=== PATIENT | male | born 1945 | race Caucasian/White ===

== ENCOUNTER 2022-12-02 06:48 | Inpatient (IN) ==
--- NOTE | 2022-12-02 09:29 | Pre Anesthesia Assessment ---
Date of Service December 02, 2022 Pre Sedation Assessment Vital Signs Temp Pulse Resp BP Pulse Ox O2 Del Method 12/02/22 07:13 36.9 C 73 14 160/73 H 95 Room Air Cardiovascular RRR, no murmur, no edema Respiratory normal respiratory effort, lungs clear to auscultation Pre-Sedation Airway Assessment Smoking Status: Never smoker Hx Sleep Apnea: No Short, Thick Neck: No Thyromental Distance: > or= 3.5 Finger Breadths Oral Cavity: + Dentures Mallampati Class: IV ASA: ASA3 NPO Status Date of Last Intake of Fluids: 12/01/22 Time of Last Intake of Fluids: 18:00 Date of Last Intake of Solid Food: 12/01/22 Time of Last Intake of Solid Foods: 18:00 Notes The planned sedation has been discussed with the patient. Informed Consent was obtained. I have identified the patient, determined the appropriateness of sedation and have assessed the patient immediately prior to the procedure. All medicine(s) and interventions are by my order.
--- NOTE | 2022-12-02 09:31 | History & Physical Bridge Note ---
Date of Service December 02, 2022 History & Physical Bridge Note I have examined the patient, reviewed the History & Physical and in the interval since the performance of the History & Physical I have noted the following changes of clinical significance: no changes noted. Patient with CCS 3 angina and abnormal stress. Known severe LAD stenosis corresponding to stress abnormality. CRI. Plan PCI from groin approach.
[2022-12-02] MEDS ORDERED: niCARdipine HCL INJ 2.5 MG/ML 10 ML AMP ONE (09:44)
[2022-12-02] MEDS ORDERED: fentaNYL citrate PF 100 MCG/2 ML VIAL ONE (09:44)
[2022-12-02] MEDS ORDERED: HEPARIN (PORCINE) 1000 UNIT/ML 10 ML (CATH LAB USE ONLY) ONE (09:44)
[2022-12-02] MEDS ORDERED: MIDAZOLAM HCL 1 MG/ML 2ML VIAL ONE (09:44)
[2022-12-02] MEDS ORDERED: NITROGLYCERIN/D5W 100MCG/ML 20ML SYR ONE (09:45)
[2022-12-02] MEDS ORDERED: diphenhydrAMINE 50 MG/ML VIAL ONE (10:08)
[2022-12-02] MEDS ORDERED: ASPIRIN 81 MG CHEW ONE (10:51)
--- NOTE | 2022-12-02 10:57 | Post Anesthesia Assessment ---
Date of Service December 02, 2022 Post Sedation Assessment Vital Signs Temp Pulse Resp BP Pulse Ox O2 Del Method 12/02/22 10:45 62 14 132/70 95 Room Air 12/02/22 07:13 36.9 C 73 14 160/73 H 95 Room Air Recovery Score Activity: Moves 4 extremities Respiration: Deep Breath/Cough Circulation: +/-20% PreAnes Value Consciousness: Fully Awake Oxygen Saturation: > 92% On Room Air Post Anesthesia Score: 10 Discharge Sedation Level of Care: Fast Track Phase II Post Sedation Plan On clinical assessment, the patient appears to have tolerated the sedation without complications. Patient is recovering as anticipated. Patient will continue to be monitored by nursing and may be discharged when sedation discharge criteria are met per below protocol. Upon Completions of procedure up to 15 minutes continue every 5 minute vital signs and the P.A.R. score; then discharge to a Phase I or Fast Track to Phase II per the following guidelines: * Discharge Patient to appropriate Phase II area if PAR is 8 or greater or return to pre- procedure baseline. The post - procedure orders will be as directed. * If PAR score is less than 8 or not return to pre-procedure baseline then patient will follow Phase I monitoring till PAR is reached for Phase II. The Phase I may be done in procedure room or may call to secure a Phase I area. * If naloxone or flumazenil are used for reversal, hold in Phase I for continued monitoring from when last reversal dose was given for a minimum of 60 minutes or longer pending the nurse and/or physician discretion of patient condition before discharge to Phase II. Please call the Sedation Physician to re-evaluate and complete post-note for discharge to Phase II area. Do NOT discharge from procedure sedation or Phase 1 until post- sedation evaluation note is complete by procedure /sedation MD Sedation Discharge Instructions to be given to the patient at discharge to home. [facility] [place]odes (Charges) Indication for Procedure Indication for procedure: CCS class 3 angina, severe CAD Sedation/Anesthesia Procedure 1: Sedation/Anesthesia: 75743 Mod Sedation by the same physician;Init15 Min Child Age 5 & Up (initial 15 min, start 1000) Total Sedation Time (minutes): 32 Procedure 2: Sedation/Anesthesia: 08024 Mod Sedation by the same physician; Ea [id number] Minutes (additional 17 min, end 1032) Total Sedation Time (minutes): 32
--- NOTE | 2022-12-02 11:04 | Cardiac Catheterization ---
[facility] Data: Med Admin Cardiac Status Clinical evaluation leading to the procedure CAD Presenation: Stable angina (Known severe LAD stenosis) Anginal Classification: CCS III Heart Failure: No Cardiogenic Shock within 24 Hours: No Cardiac Arrest within 24 Hours: No Imaging Studies Past 6 Months: Yes Stress Studies Past 6 Months: Yes Coronary Anatomy Dominant: Right Left Main (% Stenosis): Mid LAD (% Stenosis): Proximal (99%) and Distal (Focal 40 to 50%) D1 (% Stenosis): Normal (Mild) Circumflex (% Stenosis): Normal OM3 (% Stenosis): Proximal (40%) L PL1 (% Stenosis): Proximal (99%, small vessel) RCA (% Stenosis): Normal (Not imaged 2-day) Diagnostic Physicians Name: Chase Davis MD, PhD Closure Device Percutaneous Entry Location: Femoral Closure Device: None-Manual Hold Recommendations: PCI without planned CABG PCI Indication: Stable Angina and Staged PCI Lesion Segment Name: Late proximal LAD Culprit Artery: Yes Stenosis Prior to Rx (%): 99% Chronic Total Occlusion: No Pre-Procedure DEANGELO Flow: 3 Previously Treated Lesion: No Lesion Complexity: Non-High/Non-C Lesion Length (mm): 8 mm Thrombus Present: No Bifurcation Lesion: No Guidewire Across Lesion: Yes Intraprocedure Events Significant Disection: No Perforation: No Cardiac Cath Procedure Full Procedure Date December 02, 2022 Pre-Procedure Diagnosis Pre-Procedure Diagnosis: Angina and CAD (Severe LAD) AUC Score AUC Score: 07 Post-Procedure Diagnosis Post-Procedure Diagnosis: Severe CAD and Successful PCI Procedure(s) Performed Procedure(s) Performed: Coronary Angiography, Drug Eluting Stent and Ultrasound Guided Vascular Access Track Man Chase Davis MD, PhD Estimated Blood Loss Estimated Blood Loss: 5 mL Medication(s) Medication(s): Diphenhydramine, Fentanyl, Heparin, Lidocaine 1% and Versed Summary of Findings Brief description: Patient was brought to the cardiac catheterization suite where he was shaved and prepped in a sterile fashion. Patient was sedated using IV Versed, fentanyl, and Benadryl. Soft tissues of the right groin were anesthetized using 10 mils of 1% Xylocaine. Using ultrasound for guidance (image saved), the right femoral artery was accessed and a 6 Russian femoral artery sheath was placed. All catheters were advanced and exchanged over a 0.035 J-tip wire. Left coronary angiography was performed using a 6 Russian EBU 3.5 guide catheter. Patient was provided IV heparin for anticoagulation, ACT was checked intermittently and additional heparin provided as needed to maintain therapeutic anticoagulation for PCI. A BMW universal guidewire was advanced and positioned distal to the lesion in the LAD. The lesion was predilated using a 2.0 x 8 mm mini trek balloon at 8 ra A 2.5 x 12 mm skypointe drug-eluting stent was then advanced across the lesion where it was deployed initially at nominal pressure (9 ra). A second inflation was performed up to 12 ra. Digitizer angiography was performed after removal of the balloon. The guidewire was removed and final angiographic evaluation was performed in orthogonal views. Guide catheter was removed. Limited right femoral artery angiography was performed to evaluate for closure. However, the access was at the bifurcation and we decided to forego closure device. Instead, sheath was sutured in place with plan to remove the sheath and hold manual compression for hemostasis once the ACT had returned to less than 160 seconds. Patient was hemodynamically stable and asymptomatic. He received aspirin and had already taken Plavix for the day. This ended the case. Left coronary angiography: [id number] vessel bifurcating into LAD and circumflex. It is severely calcified with mild luminal irregularities. LAD: Early portion with significant calcification which becomes mild in the late proximal segment. At this level there is a focal 99% stenosis of short length. The LAD then gives 2 small septal branches before a large caliber branching first diagonal. This vessel has mild disease. The mid LAD has no significant disease and the distal vessel has only focal 40 to 50% narrowing. LCx-large caliber and nondominant. Travels in the AV groove where it gives a small OM1, a large branching OM 2, a medium caliber OM 3, and a medium caliber posterolateral branch. The AV groove vessel has mild luminal irregularities. The OM 3 has proximal 40% stenosis and the proximal small posterolateral branch is 99% stenosed. PCI: 99% stenosis reduced to 0% stenosis post PCI DEANGELO-3 flow post PCI No evidence of dissection or perforation post PCI Hemodynamics Rest Ao:: 104/51 mmHg, mean 72 mmHg Final Ao: 97/49 mmHg, mean 70 mmHg LV: Not performed Recommendations Recommendations: PCI without planned CABG Radiation Exposure (mGy) 1325 mGy, fluoroscopy time 9.3 minutes Contrast (mls) 80 Anesthesia 2 mg IV Versed, 50 mcg IV fentanyl, 25 mg IV Benadryl Procedural Complication(s) None Disposition PCU I attest to the content of the Intraoperative Record and any orders documented therein. Any exceptions are noted below. [facility] Card Cath Procedure Codes Cardiac Catheterization Procedure 1: Cardiovascular Cath Procedures: 29312 Coronaries Therapeutic Services & Ancillary Procedure 1: Cardiovascular Tx and Anc Procedures: 13522 Ultrasonic Guidance Vascular Access Moderate Sedation Procedure 1: Sedation/Anesthesia: 34498 Mod Sedation by the same physician;Init15 Min Child Age 5 & Up (Initial 15 min, start 1000) Procedure 2: Sedation/Anesthesia: 94243 Mod Sedation by the same physician; Ea [id number] Minutes (Additional 17 min, and 1032) Stenting Procedure 1: Cardiovascular Stent Procedures: 79384 Perc transcatheter placement of intracoronary stent(s), with ang (LAD) PG Care Time/CCT Total # of Minutes Spent Total Time Spent with Patient: Total time spent is greater than 50% in coordination of care (as documented) at patient's floor/unit and/or counseling patient:
[2022-12-02] MEDS ORDERED: ATROPINE SULFATE 0.1 MG/ML 10ML SYR IV ONE (14:10)
[2022-12-02] MEDS ORDERED: CARBOHYDRATES FOR HYPOGLYCEMIA PO PRN (16:40)
[2022-12-02] MEDS ORDERED: DEXTROSE 50% 50 ML SYRINGE IV PRN (16:40)
[2022-12-02] MEDS ORDERED: GLUCOSE 40% GEL 15 GM TUBE PO PRN (16:40)
[2022-12-02] MEDS ORDERED: GLUCAGON FOR INJ 1 MG VIAL SQ PRN (16:40)
[2022-12-02] MEDS ORDERED: GLUCOSE 10 TAB/TUBE PO PRN (16:40)
--- NOTE | 2022-12-02 16:47 | Hospitalist Consultation ---
Date of Consultation December 02, 2022 Assessment & Plan (1) CAD (coronary artery disease): Patient identified 99% lesion in the LAD 2.5 x 12 mm Skypoint drug-eluting stent was placed Patient tolerated procedure well was started on guideline directed medical therapy (2) Diabetes: Actos is currently held patient will be given insulin sliding scale and diabetic diet (3) Enlarged prostate: Resident to be continued for BPH History of Present Illness Attending Physician: Chase Davis MD, PhD History of Present Illness 77-year-old diabetic male who was referred for outpatient stress testing with abnormal stress testing in the apical, septum, and inferior wall segment on echocardiography along with EKG changes Patient was taken elective cardiac catheterization revealed a 99% LAD which was successfully intervened upon with stent placement Post procedure placement on dual antiplatelet therapy cardiology continued pravastatin metoprolol and lisinopril Diabetic care is typically only with Actos oral medication subsequently is on insulin sliding scale Allergies Allergy/AdvReac Type Severity Reaction Status Date / Time No Known Allergies Allergy Verified 12/02/22 07:27 Home Medications Medication Instructions Recorded Confirmed Type Hydoxyzine 50 mg PO DAILY PRN Anxiety 08/28/22 12/02/22 History allopurinol 100 mg tablet 200 mg PO DAILY 08/28/22 12/02/22 History aspirin 81 mg tablet,delayed 81 mg PO DAILY 08/28/22 12/02/22 History release cyanocobalamin (vitamin B-12) 50 50 mcg PO DAILY 08/28/22 12/02/22 History mcg tablet (Vitamin B-12) omega-3 fatty acids 1,000 mg 2,000 mg PO BID 08/28/22 12/02/22 History capsule pioglitazone 15 mg tablet (Actos) 15 mg PO DAILY 08/28/22 12/02/22 History terazosin 5 mg capsule 5 mg PO DAILY 08/28/22 12/02/22 History atorvastatin 40 mg tablet 40 mg PO DAILY #30 tabs 12/03/22 Rx clopidogrel 75 mg tablet 75 mg PO DAILY #90 tabs 12/03/22 Rx lisinopril 10 mg tablet 10 mg PO DAILY #90 tabs 12/03/22 Rx metoprolol tartrate 25 mg tablet 12.5 mg PO BID #90 tabs 12/03/22 Rx Patient History Medical History Diabetes Hypertension Social History Smoking Status: Never smoker Second Hand Exposure: No; Do You Dip or Chew Tobacco: No; Hx Alcohol Use: No Hx Substance Use: No Preferred Language: [place] Islander Current Living Situation: Spouse Feels Safe at Home: Yes Physical Exam Physical Exam: The patient appeared well nourished and normally developed. Vital signs as documented. Head exam is normocephalic atraumatic Neck is without JVD, thyromegaly, or carotid bruits. Lungs are clear to auscultation, no focal loss of breath sounds Cardiac exam, Rhythm is regular.. No murmurs, rubs or gallops. Abdominal exam reveals normal bowel sounds, soft non tender, no masses Right groin bandage in place distal pulses are intact Neurologic exam is alert and oriented, no focal loss of strength or sensation Skin is without bruises or rashes Psychologically is without concerns for anxiety or depression.. Results & Data Results & Data Vital Signs (Past 12 Hours) Vital Signs Temp Pulse Resp BP Pulse Ox O2 Del Method 12/02/22 16:15 83 16 114/81 93 Room Air 12/02/22 14:45 98.4 F 67 14 139/66 95 Room Air 12/02/22 14:40 98.4 F 66 14 124/74 95 Room Air 12/02/22 14:50 98.4 F 66 14 132/67 95 Room Air 12/02/22 14:35 98.4 F 69 14 134/67 95 Room Air 12/02/22 14:30 98.4 F 69 14 150/76 H 95 Room Air 12/02/22 14:25 98.4 F 56 L 14 148/79 H 95 Room Air 12/02/22 14:00 98.4 F 56 L 14 121/67 95 Room Air 12/02/22 13:00 98.4 F 56 L 14 124/68 94 Room Air 12/02/22 12:30 98.4 F 52 L 14 121/66 94 Room Air 12/02/22 12:00 98.4 F 51 L 14 117/63 94 Room Air 12/02/22 11:30 98.4 F 50 L 14 112/59 L 95 Room Air 12/02/22 11:15 98.4 F 56 L 14 113/61 93 Room Air 12/02/22 11:00 98.4 F 63 14 125/66 93 Room Air 12/02/22 10:45 62 14 132/70 95 Room Air 12/02/22 07:13 98.4 F 73 14 160/73 H 95 Room Air ECG Additional Comments: EKG is sinus rhythm without acute ST or T wave changes PG Care Time/CCT Total # of Minutes Spent Total Time Spent with Patient: Total time spent is greater than 50% in coordination of care (as documented) at patient's floor/unit and/or counseling patient: Coding Level of Care Code 41424 IN/OBS CONSULT LVL 3,45M Diagnoses CAD (coronary artery disease) I25.10 Diabetes E11.9 Enlarged prostate N40.0
[2022-12-02] MEDS ORDERED: PRAVASTATIN SOD 40 MG TAB PO SCH (17:00)
[2022-12-02] MEDS ORDERED: Nursing to Pharmacy Communication SCH (20:15)
[2022-12-02] MEDS ORDERED: TERAZOSIN HCL 5 MG CAP PO SCH (21:00)
[2022-12-02] MEDS: INSULIN ASPART PER UNIT CHARGE SC SCH (21:05)
[2022-12-02] MEDS: METOPROLOL TARTRATE 25 MG TAB PO SCH (21:07)
[2022-12-03 06:35] LABS: Basophils # (auto) 0.04 K/uL (0-0.2); Basophils % (auto) 0.5 %; Eosinophils # (auto) 0.24 K/uL (0-0.50); Eosinophils % (auto) 2.7 %; Hematocrit (blood only) 37.5 % (42.0-52.0); Hemoglobin 13.1 g/dl (14.0-18.0); Immature Granulocytes # (auto) 0.03 K/uL (0.01-0.20); Immature Granulocytes % (auto) 0.3 %; Lymphocytes # (auto) 1.88 K/uL (1.2-3.4); Lymphocytes % (auto) 21.2 %; Mean Corpuscular Hemoglobin 31.6 pg (25.0-34.0); Mean Corpuscular Hgb Conc 34.9 g/dL (32.0-36.0); Mean Corpuscular Volume 90.4 fL (80.0-100.0); Mean Platelet Volume 11.1 fL (9.4-12.4); Monocytes # (auto) 0.63 K/uL (0.11-0.59); Monocytes % (auto) 7.1 %; Neutrophils # (auto) 6.05 K/uL (1.40-6.50); Neutrophils % (auto) 68.2 %; Platelet Count 247 K/uL (130-400); RDW Coefficient of Variation 13.2 % (11.5-14.5); RDW Standard Deviation 43.2 fL (36.4-46.3); Red Blood Count 4.15 M/uL (4.70-6.10); White Blood Count 8.87 K/ul (4.8-10.8)
[2022-12-03 07:20] LABS: Calcium 9.3 mg/dl (8.6-10.3); Potassium 4.9 mmol/L (3.5-5.1)
[2022-12-03 07:33] LABS: BUN Creatinine Ratio 17.2 (10-20); Creatinine Clr Calc Pharmacy 29.2 ml/min; Est GFR (African American) 35.6 ml/min; Est GFR (Non-African American) 30.7 ml/min
[2022-12-03] MEDS: METOPROLOL TARTRATE 25 MG TAB PO SCH (08:33)
[2022-12-03] MEDS: INSULIN ASPART PER UNIT CHARGE SC SCH (08:47)
--- NOTE | 2022-12-03 08:48 | Electrocardiogram Report ---
Test Reason : Blood Pressure : / mmHG Vent. Rate : 058 BPM Atrial Rate : 058 BPM P-R Int : 156 ms QRS Dur : 088 ms QT Int : 398 ms P-R-T Axes : 050 030 007 degrees QTc Int : 390 ms Poor data quality, interpretation may be adversely affected Sinus bradycardia Otherwise normal ECG When compared with ECG of 03-DEC-2021 18:12, No significant change was found Confirmed by Nabeel Castellano ([id number]) on 12/03/2022 8:48:18 AM Referred By: Chase Davis Confirmed By:Nabeel Castellano
[2022-12-03] MEDS ORDERED: TERAZOSIN HCL 5 MG CAP PO SCH ×2 (09:00→21:00)
[2022-12-03] MEDS ORDERED: ASPIRIN 325 MG ECTAB PO SCH (09:00)
[2022-12-03] MEDS ORDERED: CLOPIDOGREL BISULFATE 75 MG TAB PO SCH (09:00)
[2022-12-03] MEDS ORDERED: allopurinoL 100 MG TAB PO SCH (09:00)
[2022-12-03] MEDS ORDERED: lisinopril 10 MG TAB PO SCH ×2 (09:00→17:00)
--- NOTE | 2022-12-03 14:46 | Discharge Summary ---
Date of Service December 03, 2022 Principal Diagnosis Unstable angina abnormal stress test drug-eluting stent placed in left anterior descending artery x1 Discharge Exam Patient required appropriate Her exam is regular Right groin is without bruit or pulsatile masses tender distal pulses are also intact to the right leg Discharge Data Allergies Allergy/AdvReac Type Severity Reaction Status Date / Time No Known Allergies Allergy Verified 12/02/22 07:27 Consultations 12/02/22 10:50 Consult Hospitalist Stat Procedures Performed Operation Date: 12/02/22 09:30 Actual Procedures p Drug Eluting Stent SGl Vessel - Chase Davis MD, PhD s Cineradiography w/Routine Exam - Chase Davis MD, PhD s Ultrasound Vascular Access - Chase Davis MD, PhD Ordered Studies 12/02/22 06:29 CL Cath Imgs for PACS use only Routine Hospital Course (1) CAD (coronary artery disease): Patient identified 99% lesion in the LAD 2.5 x 12 mm Skypoint drug-eluting stent was placed Patient tolerated procedure well was started on guideline directed medical therapy changing pravastatin to atorvastatin (2) Diabetes: Actos resumed after discharge (3) Enlarged prostate: terazosin to be continued for BPH Total Time Total Time Spent Total Time Spent (In Minutes): It required greater than 30 minutes to prepare this patient for discharge Discharge Plan Discharge Items Patient Disposition: Home - Self-Care Reason For Visit: Chest Pain, Abnormal Stress, Planned PCI Discharge Diagnosis: Coronary artery disease with Stent in Left Anterior Descending coronary artery Activity: Per Instructions section Activity Comment: no intentional exercise until follow up with cardiology Non-emergency contact: Primary Care Provider and [employer]ro[employer] Installer Call non-emergency contact if: your symptoms worsen Follow-up/Referrals: Chase Davis MD, PhD [Physician] - Reggie Trevino [employer] [Primary Care Provider] - Addtl Attending Provider Instructions: ACTIVITY RECOMMENDATIONS: Excess manipulation of the leg should be avoided for the next 24-48 hours. * No strenuous activity such as bowling or tennis for 3 days. * Keep the site of the procedure covered with a bandage for 24 hours. *You may shower the day after the procedure. Do not take a tub bath or submerge the puncture site in water for the next 3 days. *Do not operate any motorized equipment for 3 days. SPECIAL CARE INSTRUCTIONS: The site may be slightly bruised and sore following your procedure. Should any of the following occur, contact the Dr. who performed your procedure. 1. Redness/inflammation, swelling, chills, or fever, or colored drainage at procedure site within 3-7 days after your procedure. 2. Coldness, discoloration, ongoing numbness, severe pain, or swelling. Expect mild tingling of hand and tenderness at the puncture site for up to three days. If this persists beyond three days, or other symptoms develop, notify the Dr. who performed your procedure. BLEEDING: If the procedure site on your wrist begins to bleed, do not panic 1. Place 1 or 2 fingers firmly just slightly above the insertion site to stop the bleeding. You may be able to feel your pulse as you hold pressure. 2. Lift your finger after 5 minutes to see if the bleeding has stopped. 3. Once the bleeding has stopped, gently wipe the wrist area clean with a bandage. * If the bleeding from your wrist does not stop after 10 minutes, or if there is a large amount of bleeding or spurting, call 911 (do not drive yourself to the hospital). SKIN IRRITATION: * You may experience some redness and/or swelling in the area where radiation was administered. If any skin irritation occurs, please contact your family physician. FOLLOW UP VISIT: Keep any scheduled doctor appointments. Pending Studies at Discharge: No Stand-Alone Forms: [facility], Smoking Cessation Medications and DC Order Prescriptions: New atorvastatin 40 mg tablet 40 mg PO DAILY Qty: 30 5RF Continued terazosin 5 mg Capsule 5 mg PO DAILY pioglitazone [Actos] 15 mg Tablet 15 mg PO DAILY omega-3 fatty acids 1,000 mg Capsule 2,000 mg PO BID Rx Instructions: 2 tabs in am , 2 in pm allopurinol 100 mg Tablet 200 mg PO DAILY aspirin 81 mg Tablet,Delayed Release (Dr/Ec) 81 mg PO DAILY Vitamin B-12 50 mcg Tablet 50 mcg PO DAILY Hydoxyzine 50 mg PO DAILY PRN (Reason: Anxiety) Discontinued pravastatin 40 mg Tablet 40 mg PO HS amlodipine 10 mg Tablet 10 mg PO DAILY No Action clopidogrel 75 mg tablet 75 mg PO DAILY Qty: 90 3RF lisinopril 10 mg tablet 10 mg PO DAILY Qty: 90 3RF metoprolol tartrate 25 mg tablet 12.5 mg PO BID Qty: 90 3RF Discharge Orders: Discharge Order (Routine); Ordered 12/03/22 Ordered By: David Simon Admission Data Admit Date/Time: 12/02/22 10:42 Attending Provider: Chase Davis Admit Provider: Chase Davis Primary Care Provider: Reggie Trevino Other Providers: David Simon Other Interventions: Discharge Summary Assessment (RN) Last Done: 12/03/22 10:01 Coding Level of Care Code 84073 INP/OBS DISCH >30 MIN Diagnoses CAD (coronary artery disease) I25.10 Diabetes E11.9 Enlarged prostate N40.0
--- NOTE | 2022-12-03 15:11 | Cardiology Progress Note ---
Date of Service December 03, 2022 Assessment & Plan (1) CAD (coronary artery disease): Plan: Status post successful PCI with implantation of a drug-eluting stent to the LAD. No complications. Target heart rate and blood pressure. He is appropriate for discharge at this time. He will remain on dual antiplatelet therapy with aspirin and Plavix. Continue guideline directed medical therapy with beta- melany and ILEANA inhibitor. He should follow-up in the cardiology clinic within 1 to 3 weeks of discharge. He has been provided instructions for post catheterization care, change in his medical regimen, etc. Admission and Anticipated Discharge Date Admission Date: December 02, 2022 Subjective Patient did well overnight. No chest pain or shortness of breath. Mild tenderness at the right groin access site. No other complaints or concerns at this time. Review of Systems Review of Systems: Negative except as per HPI Physical Exam Constitutional: WD/WN, vitals as above Neck: No JVD Respiratory: Clear to auscultation bilaterally. No wheezing, rhonchi, or rales. Cardiovascular: Regular rate and rhythm. S4 gallop. No rubs or murmurs appreciated. No edema. Musculoskeletal: Right groin access site is clean dry and intact. No bruit. Good distal perfusion. Neurologic: Cognition is intact. Speech is fluent. No focal deficits. Psychiatric: A+Ox3, euthymic affect Results & Data Vital Signs (Past 12 Hours) Vital Signs Temp Pulse Pulse Resp BP Pulse Ox O2 Del Method 12/03/22 10:01 36.6 C 52 L 18 132/66 92 12/03/22 08:58 52 L 12/03/22 07:47 36.6 C 52 L 18 132/66 92 Room Air 12/03/22 03:45 36.9 C 52 L 18 135/76 95 Room Air PG Care Time/CCT Total # of Minutes Spent Total Time Spent with Patient: Total time spent is greater than 50% in coordination of care (as documented) at patient's floor/unit and/or counseling patient: Coding Level of Care Code 59046 SUB INP/OBS CARE 07/03MIN Diagnoses CAD (coronary artery disease) I25.10
== END 2022-12-03 10:54 | disposition home or self-care (01) | DRG 247 ==
LOC: CC 06:48 → 4W 10:42